=== PATIENT | female | born 1960 | race Asian ===

== ENCOUNTER 2016-06-19 23:52 | Emergency (ER) | payer OTHER ==
[~2016-06-19] VITALS: Ht 160 cm; Wt 57.6 kg
[~2016-06-19 23:52] MED LIST: ONDA4TAB10 SL
[2016-06-19 23:59] VITALS: BP 128/95
--- NOTE | 2016-06-20 00:13 | PHYS DOC ---
General Chief Complaint: NAUSEA/VOMITING/DIARRHEA Stated Complaint: VOMITING Time Seen by MD: 23:53 Source: patient Exam Limitations: no limitations Problems: History of Present Illness Initial Comments Pt is 56/F to ED c/o n/v. Pt states approx 1700 today she developed generalized dyspepsia, diaphoresis, and n/v x 1. Since that time she's had five other episodes n/v, states she's had PO intolerance and currently fears PO due to n/v. No focal abdominal pain complaints, no fever/hematemesis/travel. States she may have drank some soy milk around 1500 today. No diarrhea, last BM yesterday "normal." No prearrival treatment, no n/v during my evaluation. Timing/Duration: 4-6 hours Severity: moderate Modifying Factors: worse with eating Associated Symptoms: diaphoresis, malaise, nausea/vomiting, other Allergies: Coded Allergies: Penicillins (Verified Allergy, Intermediate, 06/20/16) Past Medical History Medical History: cancer (breast), hypertension Surgical History: cholecystectomy (hysterectomy, L mastectomy) Psychosocial History: anxiety Social History Smoker: cigarettes Alcohol: occasionally Drugs: none Review of Systems Constitutional: see HPI chills diaphoresisdenies fever, malaise Respiratory: denies cough, denies shortness of breath, denies wheezing Cardiovascular: denies chest pain, denies palpitations, denies syncope Gastrointestinal: see HPIdenies constipation, denies diarrhea Genitourinary: denies dysuria, denies frequency, denies hematuria Musculoskeletal: denies back pain, denies joint swelling, muscle paindenies neck pain Psychiatric/Neurological: denies headache, denies numbness, denies paresthesia Hematologic/Lymphatic: denies blood clots, denies easy bleeding, denies easy bruising Physical Exam General Appearance: WD/WN, no apparent distress Eyes: bilateral eye EOMI, bilateral eye PERRL, bilateral eye normal inspection Ear, Nose, Throat: hearing grossly normal, normal ENT inspection, normal pharynx Neck: non-tender, supple Respiratory: normal breath sounds, no respiratory distress Cardiovascular: normal peripheral pulses, regular rate, rhythm Gastrointestinal: soft (ND, BS normal. Epigastric mild TTP no r/g/mass, neg mcburney/mejias no suprapubic TTP) Rectal: deferred Back: no CVA tenderness, no vertebral tenderness Extremities: non-tender, normal inspection Neurologic/Psychiatric: counter roller II-XII nml as tested, no motor/sensory deficits, alert, normal mood/affect, oriented x 3 Skin: normal color, warm/dry Orders, Labs, Meds ED workup reassuring. 0055: Pt states no further n/v, no pain. States she is ready for discharge. Expressed agreement/understanding with treatment plan. Departure Time of Disposition: 00:52 Disposition: 01 HOME, SELF-CARE Diagnosis: gastroenteritis, dehydration, tobaccoism Condition: IMPROVED Patient Instructions: Dehydration, Adult, [id number], Smoking Cessation, Viral Gastroenteritis, [id number] Additional Instructions: Stop smoking, seek medical assistance if necessary. Off work thru 06/21. Aggressive hydration with gatorade, water. Clear liquids, advance slowly to bland diet as tolerated. Rx: zofran odt, dicyclomine, take as directed. Follow up with your doctor in 3-5 days if not better. Return to ED with new or changing symptoms. VERA HICKMAN DO Jun 20, 2016 00:13
[2016-06-20] MEDS ORDERED: FAMOTIDINE 20 MG/2 ML VIAL IVP ONE (00:30)
[2016-06-20] MEDS ORDERED: IV NORMAL SALINE 1,000ML 1,000 ML IV SCH (00:30)
[2016-06-20] MEDS ORDERED: ONDANSETRON PF 4 MG/2 ML VIAL. IV ONE (00:30)
[2016-06-20 00:33] LABS: BASO % 1 % (0-3); EOS % 0 % (0-3); HEMATOCRIT 38.2 % (36.0-47.0); HEMOGLOBIN 12.4 g/dL (12.0-15.5); LYMPH # 2.2 x10^3/uL (1.0-4.8); LYMPH % 32 % (24-48); MEAN CORPUSCULAR HEMOGLOBIN 32 pg (25-35); MEAN CORPUSCULAR HGB CONC 32 g/dL (31-37); MEAN CORPUSCULAR VOLUME 100 fL (79-100); MONO # 0.4 x10^3/uL (0.0-1.1); MONO % 6 % (0-9); NEUT # 4.2 x10^3uL (1.8-7.7); NEUT % 61 % (31-73); PLATELET COUNT 239 x10^3/uL (140-400); RED BLOOD COUNT 3.83 x10^6/uL (3.50-5.40); RED CELL DISTRIBUTION WIDTH 14.2 % (11.5-14.5); WHITE BLOOD COUNT 6.9 x10^3/uL (4.0-11.0)
[2016-06-20 00:38] LABS: CALCIUM 9.2 mg/dL (8.5-10.1); CREATININE 0.7 mg/dL (0.6-1.0); GFR 87.2
[2016-06-20 00:41] LABS: POTASSIUM 3.6 mmol/L (3.5-5.1)
[2016-06-20] MEDS ORDERED: DICY20TA3 PO (00:51)
[2016-06-20] MEDS ORDERED: ONDA4TAB10 PO (00:51)
[2016-06-20] MEDS ORDERED: ONDANSETRON ODT 4 MG TAB.RAPDIS PO ONE (01:00)
[2016-06-20] MEDS ORDERED: ONDANSETRON 4MG ODT 4TABLET STARTPACK. PO ONE (01:15)
== END 2016-06-20 01:05 | disposition home or self-care (01) ==
LOC: ER 23:52
DX: K52.9 Noninfective gastroenteritis and colitis, unspecified (principal); E86.0 Dehydration; I10 Essential (primary) hypertension; Z90.10 Acquired absence of unspecified breast and nipple; F17.210 Nicotine dependence, cigarettes, uncomplicated; Z88.0 Allergy status to penicillin
CPT/HCPCS: 36415; 80048; 85027; 96361; 96374; 96375; 99284; J2405; Q0162; S0028; J7030